=== PATIENT | female | born 1955 | race Caucasian/White ===

== ENCOUNTER 2017-07-02 10:59 | Outpatient (CLI) | payer BC, OTHER | END 2017-07-02 11:00 | disposition home or self-care (01) | LOC: BICMAMMO 10:59 | PROVIDERS: ATTEND Family Medicine | DX: Z12.31 Encounter for screening mammogram for malignant neoplasm of breast (principal); M85.80 Other specified disorders of bone density and structure, unspecified site; M85.859 Other specified disorders of bone density and structure, unspecified thigh | CPT/HCPCS: 77063; 77067; 77080 ==

== ENCOUNTER 2017-12-08 17:22 | Observation (INO) | payer BC ==
--- NOTE | 2017-12-08 17:47 | RAD ---
FRONTAL RADIOGRAPHY CHEST 12/08/17 COMPARISON: None available. HISTORY: Hypertension, left arm numbness, and back pain. FINDINGS: The lungs appear clear. No focal consolidation or alveolar edema. Heart and mediastinal contours are within normal limits. IMPRESSION: No acute findings. POS: [facility]
[2017-12-08 18:13] LABS: #Basophils 0.1 thou/uL (0.0-0.2); #Eosinphils 0.1 thou/uL (0.0-0.7); #Lymphocytes 2.4 thou/uL (1.20-3.40); #Monocytes 0.7 thou/uL (0.11-0.59); #Neutrophils 7.5 thou/uL (1.40-6.50); %Basophils 0.8 % (0.0-1.0); %Eosinophils 1.3 % (0.0-10.0); %Lymphocytes 22.1 % (21.0-51.0); %Monocytes 6.7 % (0.0-10.0); %Neutrophils 69.2 % (42.0-75.0); Hemoglobin 15.9 g/dL (12.0-16.0); Mean Corpuscular HGB CONC 35.6 g/dL (32.0-36.0); Mean Corpuscular Hemoglobin 32.8 pg (27.0-31.0); Mean Corpuscular Volume 92.2 fL (78.0-98.0); Mean Platelet Volume 8.7 fL (7.4-10.4); Platelet Count 186 thou/uL (130-400); RBC Distribution Width 13.4 % (11.5-14.5); Red Blood Cell (RBC) Count 4.84 mill/uL (4.20-5.40); White Blood Cell (WBC) Count 10.8 thou/uL (4.8-10.8)
[2017-12-08 18:23] LABS: ALT (SGPT) 60 U/L (8-55); AST (SGOT) 38 U/L (5-34); Albumin 4.9 g/dL (3.4-4.8); Alkaline Phosphatase 92 U/L (40-150); Anion Gap 18 mmol/L (10-20); BUN (Urea Nitrogen) 16 mg/dL (9.8-20.1); CK (CPK) 109 U/L (29-168); Calc. Creatinine Clearance 0 mL/min (70-130); Calcium 10.1 mg/dL (7.8-10.44); Carbon Dioxide 22 mmol/L (23-31); Chloride 101 mmol/L (98-107); Estimated GFR-MDRD 69; Globulin 2.6 g/dL (2.4-3.5); Glucose 100 mg/dL (80-115); Lipase 27 U/L (8-78); Potassium 3.6 mmol/L (3.5-5.1); Protein, Total 7.5 g/dL (6.0-8.3); Sodium 137 mmol/L (136-145)
[2017-12-08 18:30] LABS: CKMB 1.1 ng/mL (0-6.6); Troponin I Less than 0.010 ng/mL (< 0.028)
[2017-12-08] MEDS ORDERED: Nitroglycerin 2% Ointment 1 INCH/1 GM Packet ONE (18:31)
[2017-12-08] MEDS ORDERED: hydrALAZINE 20 MG/ML VIAL SLOW IVP PRN (20:22)
[2017-12-08] MEDS ORDERED: Ondansetron ODT 4 MG TAB PO PRN (20:24)
[2017-12-08 21:21] LABS: Troponin I Less than 0.010 ng/mL (< 0.028)
--- NOTE | 2017-12-08 21:53 | CT ---
CT ANGIOGRAM OF CHEST AND ABDOMEN 12/08/17 COMPARISON: None. HISTORY: Hypertension, chest pain, assess for aneurysm or dissection of the aorta. TECHNIQUE: Serial axial CT imaging at 2.5 mm intervals from thoracic inlet through mid sacrum with IV contrast u sing a CT angiogram protocol. Coronal and sagittal 3D reformatted imaging obtained. FINDINGS: No axillary, mediastinal, or hilar lymphadenopathy. No pleural, pericardial, or mediastinal fluid. No pneumothorax. Lung parenchyma appears grossly unremarkable bilaterally. No endobronchial lesion is evident. There is no evidence for aneurysm or dissection of the thoracic or the abdominal aorta. The hepatic parenchyma is diffusely hypodense, suggesting hepatic steatosis. The spleen is grossly un remarkable. The gallbladder is surgically absent. The pancreas is unremarkable as are bilateral adren al glands. The kidneys appear grossly unremarkable as well. There is mild scattered atherosclerotic calcification of the abdominal aorta and its branches. The ce liac axis, superior mesenteric artery, bilateral renal arteries, and inferior mesenteric artery are p atent. Imaged portions of the bowel appear grossly unremarkable. The pelvis is not imaged on this exam. No a bdominal adenopathy. Osseous structures demonstrate multilevel lower lumbar spine facet hypertrophic change. No worrisome lytic or blastic bone lesion. IMPRESSION: No evidence for aneurysm or dissection of the thoracic or abdominal aorta. POS: [facility]
[2017-12-08 22:08] VITALS: BMI 37.5
[2017-12-08] MEDS: Famotidine 20 MG TAB PO SCH (22:45)
[2017-12-09 00:05] LABS: Troponin I Less than 0.010 ng/mL (< 0.028)
[2017-12-09] MEDS ORDERED: Norepinephrine 8 MG/0.9% NS 250 ML IVPB PRN (00:37)
[2017-12-09] MEDS ORDERED: CCU Electrolyte Replacement 1 EACH IVPB SCH (00:37)
[2017-12-09] MEDS ORDERED: Ventilator Sedation Protocol 1 EACH FS SCH (00:45)
[2017-12-09] MEDS ORDERED: Propofol 1,000 MG/100 ML VIAL IV PRN (00:51)
[2017-12-09] MEDS ORDERED: Fentanyl BOLUS 250 ML IVPB PRN (00:51)
[2017-12-09] MEDS ORDERED: DISCONTINUE PREVIOUS NARCOTIC PAIN MEDICATIONS AND BENZODIAZEPINES FS SCH (00:51)
[2017-12-09] MEDS ORDERED: Propofol BOLUS 1,000 MG/100 ML VIAL IV PRN (00:51)
[2017-12-09] MEDS ORDERED: Lorazepam 2 MG/ML VIAL SLOW IVP PRN (00:51)
[2017-12-09] MEDS ORDERED: fentaNYL Citrate/PF 2,000 MCG in Sodium Chloride 0.9% 60 ML IV SCH (00:51)
[2017-12-09] MEDS ORDERED: Potassium Chloride 40 MEQ in Sodium Chloride 0.9% 250 ML 250 ML IVPB PRN (00:52)
[2017-12-09] MEDS ORDERED: Potassium Phosphate 15 MMOL in Sodium Chloride 0.9% 250 ML 250 ML IV PRN (00:52)
[2017-12-09] MEDS ORDERED: Potassium Chloride 20 MEQ TAB PO PRN (00:52)
[2017-12-09] MEDS ORDERED: Potassium Phosphate 9 MMOL in Sodium Chloride 0.9% 100 ML IVPB PRN (00:52)
[2017-12-09] MEDS ORDERED: Magnesium 2 GM/NS 0.9% 100 ML 2 GM in Premix Bag 1 BAG IVPB PRN (00:52)
[2017-12-09] MEDS ORDERED: Magnesium Oxide 400 MG TAB PO PRN ×2 (00:52)
[2017-12-09] MEDS ORDERED: Potassium Phosphate 12 MMOL in Sodium Chloride 0.9% 250 ML 250 ML IV PRN (00:52)
[2017-12-09] MEDS ORDERED: CCU ELECTROLYTE REPLACEMENT PROTOCOL FS PRN (00:52)
[2017-12-09] MEDS ORDERED: Potassium Chloride 40 MEQ in Premix Bag 1 BAG IVPB PRN (00:52)
[2017-12-09] MEDS ORDERED: Morphine 2 MG/ML SYRINGE SLOW IVP PRN (01:00)
[2017-12-09] MEDS ORDERED: Sodium Chloride 0.9% 1,000 ML IV SCH (01:45)
--- NOTE | 2017-12-09 02:42 | HP ---
CHIEF COMPLAINT: Hypertension. HISTORY OF PRESENT ILLNESS: This is a 62-year-old female with past medical history of hyperlipidemia , hypertension, presenting to the ED with chief complaint of elevated blood pressure. Per the patien everardo, she has been helping the grandchild, who has special needs and after lifting the grandchild faye mcgee pulled her back muscle and since the patient has been having back pain which has been radiating to the left arm and left arm has been having some numbness and tingling sensation in it. Patient has be en taking tramadol to help with the pain; however, today patient stated that she was not feeling too well and that she was feeling "funny." Therefore, patient checked her blood pressure and her systoli c blood pressure was 211, so this prompted the ED visit. At this point during my time with the amanda vigil, patient was found to have prodromal symptoms of nausea, diaphoresis, and patient had a near synco pe and patient's blood pressure dropped from 180 systolic to 108 systolic in the ED. EKG was done by the bedside, which showed the patient was bradycardic in the 40s. Patient was then started on fluid s and patient was sent to CAT scan. CT of the chest was done to rule out any aortic dissection. Pat ient denies any headaches, chest pain, palpitations, abdominal pain. REVIEW OF SYSTEMS: Positive for hypertension, generalized weakness, back pain, otherwise as document ed in the HPI. All other systems were reviewed and are negative. FAMILY HISTORY: Patient's mother and father had heart issues. Mom had a catheterization and father at 40 with cardiac issue. PAST MEDICAL HISTORY: 1. Hyperlipidemia. 2. Hypertension. PAST SURGICAL HISTORY: Laparoscopic cholecystectomy and hysterectomy. PSYCHIATRIC HISTORY: No previous psychiatric history noted. SOCIAL HISTORY: Patient is a social drinker. Denies any illicit drug use. Denies any smoking histo ry. ALLERGIES: No known drug allergies. CURRENT MEDICATIONS: 1. Patient takes tramadol and acetaminophen. 2. Benicar hydrochlorothiazide 40 mg/25 mg. 3. Crestor 10 mg. 4. Bystolic 10 mg. PHYSICAL EXAMINATION: VITAL SIGNS: Blood pressure is 234/111, pulse of 59, respiratory rate of 16, temperature of 98, O2 s at of 96. After patient had near syncope, patient's blood pressure repeat was 108/58, pulse of 45, r espiratory rate of 18, O2 sat of 96. GENERAL APPEARANCE: During my examination, patient was lying in bed, states that she was feeling fun ny, but does not appear to be in any acute distress, speaking in full sentences. HEENT: Normocephal ic, atraumatic. Pupils are equal, round, and reactive to light. Extraocular movements are intact. No scleral icterus. No conjunctival pallor. NECK: Supple, no JVD. Trachea is midline. Full range of motion. RESPIRATORY: Clear to auscultation bilaterally. No wheezing, no rales, no rhonchi appreciated. CARDIOVASCULAR: Positive S1, S2. Regular rate and rhythm. Patient is bradycardic. ABDOMEN: Obese abdomen, soft, nontender, nondistended. No peritoneal signs. Positive bowel sounds in all quadrants. EXTREMITIES: Upper and lower extremity, patient has 5/5 upper extremity strength. Good radial pulse s and 5/5 lower extremity strength. Good radial pulses. NEUROLOGIC: Cranial nerves II-XII grossly intact. No neurologic deficit noted. SKIN: Warm, dry, and intact. IMAGIN. EKG showed sinus bradycardia with a rate of 57. 2. Repeat EKG showed sinus bradycardia with a rate of 45 with first-degree heart block. 3. Chest x-ray showed no acute findings. 4. CT of the chest showed no evidence of aneurysm or dissection of the thoracic or abdominal aorta. ED COURSE: In the ED, patient was given normal saline, aspirin, and nitro transdermal. LABORATORY DATA: WBC 10.8, hemoglobin 15.9, hematocrit 44.6, MCV 92.2, RDW 13.4, platelet count 186. Sodium of 137, potassium 3.6, chloride 101, carbon dioxide of 22, anion gap of 18, BUN 16, creatini ne is 0.84, glucose of 100. AST is 38, ALT is 60, lipase of 27. Troponin is less than 0.010 x2. ASSESSMENT AND PLAN: This is a 62-year-old female with past medical history of hypertension presenti with hypertensive urgency. Patient's blood pressure at home was 211, repeat in the ED was 235 sys tolic. Patient was given nitro patch in the ED and hydralazine 10 mg IV every 4 hours p.r.n. has bee n ordered. We will continue to watch patient's blood pressure closely. Patient is going to be admit douglas to tele floor. We will consider Cardiology consult after echo has been performed. Depending on echo results, we will consider Cardiology consult. 1. History of hypertension. Patient takes hypertensive medication, however, seems like patient's me dication is not controlling patient's blood pressure, therefore, based on how patient does overnight. The morning team will adjust patient's blood pressure medications accordingly to address patient's blood pressures. 2. Hyperlipidemia. Continue patient on her current medications. 3. Deep venous thrombosis and gastrointestinal prophylaxis. We will do Lovenox and Pepcid for gastr ointestinal prophylaxis.
[2017-12-09] MEDS: Acetaminophen 325 MG TAB PO PRN ×2 (03:22→17:49)
[2017-12-09 04:37] LABS: Anion Gap 13 mmol/L (10-20); BUN (Urea Nitrogen) 13 mg/dL (9.8-20.1); Calc. Creatinine Clearance 129 mL/min (70-130); Calcium 9.7 mg/dL (7.8-10.44); Carbon Dioxide 25 mmol/L (23-31); Chloride 102 mmol/L (98-107); Estimated GFR-MDRD 83; Glucose 98 mg/dL (80-115); Sodium 137 mmol/L (136-145)
[2017-12-09 04:45] LABS: #Eosinphils 0.1 thou/uL (0.0-0.7); #Monocytes 0.6 thou/uL (0.11-0.59); #Neutrophils 6.6 thou/uL (1.40-6.50); %Basophils 0.5 % (0.0-1.0); %Eosinophils 0.7 % (0.0-10.0); %Lymphocytes 21.4 % (21.0-51.0); %Monocytes 6.6 % (0.0-10.0); %Neutrophils 70.9 % (42.0-75.0); Hemoglobin 15.2 g/dL (12.0-16.0); Mean Corpuscular HGB CONC 35.6 g/dL (32.0-36.0); Mean Corpuscular Hemoglobin 33.1 pg (27.0-31.0); Mean Corpuscular Volume 92.9 fL (78.0-98.0); Mean Platelet Volume 8.4 fL (7.4-10.4); Platelet Count 159 thou/uL (130-400); RBC Distribution Width 13.4 % (11.5-14.5); Red Blood Cell (RBC) Count 4.58 mill/uL (4.20-5.40); White Blood Cell (WBC) Count 9.3 thou/uL (4.8-10.8)
[2017-12-09] MEDS: Nebivolol HCl 5 MG TAB PO SCH (05:10)
[2017-12-09] MEDS: Hydrochlorothiazide 25 MG TAB PO SCH (05:10)
[2017-12-09] MEDS ORDERED: Famotidine/PF 20 mg/2ml Vial SLOW IVP SCH (09:00)
[2017-12-09] MEDS: Famotidine 20 MG TAB PO SCH ×2 (10:14→20:17)
[2017-12-09] MEDS: Enoxaparin Sodium 40 MG/0.4 ML SYRINGE SC SCH (10:15)
[2017-12-09] MEDS ORDERED: Promethazine HCl 25 MG/ML VIAL IM/IV SCH (13:30)
[2017-12-09] MEDS ORDERED: Cyclobenzaprine 10 MG TAB PO SCH (13:30)
--- NOTE | 2017-12-09 15:59 | CT ---
CT THORACIC SPINE NONCONTRAST: HISTORY: Lifting injury. Back pain. FINDINGS: Vertebral body height and alignment are maintained. Mild osteophytosis. No acute fracture or disloc ation. IMPRESSION: No evidence of compression fracture. No acute osseous abnormalities are demonstrated. POS: [facility]
--- NOTE | 2017-12-09 17:23 | PDOC.PN ---
- Subjective Encounter Start Date: 12/09/17 Encounter Start Time: 15:00 Pt seen for followup re:hypertensive urgency. c/o left upper back pain, started when she was trying to gransfer grandchild from wheelchair to car a few days ago. - Objective Resuscitation Status: Resuscitation Status FULL:Full Resuscitation MAR Reviewed: Yes Vital Signs & Weight: Vital Signs (12 hours) Temp Pulse Resp BP BP Pulse Ox 12/09/17 16:50 70 182/88 H 12/09/17 16:04 98.0 F 74 20 188/83 H 93 L 12/09/17 11:52 97.9 F 60 20 190/86 H 96 12/09/17 07:32 98.0 F 65 20 182/84 H 94 L 12/09/17 06:00 67 154/72 H Weight Weight 219 lb I&O: 12/08/17 12/09/17 12/10/17 06:59 06:59 06:59 Intake Total 240 Output Total 1900 Balance -1660 Result Diagrams: 12/09/17 03:52 12/09/17 03:52 EKG Reviewed by me: Yes (Tele: NSR) Phys Exam - Physical Examination Obese HEENT: moist MMs, sclera anicteric, oral pharynx no lesions, 2+ tonsils Neck: no nodes, no JVD, supple, full ROM Respiratory: no wheezing, no rales, no rhonchi, clear to auscultation bilateral Cardiovascular: RRR, no rub S1, S2 Gastrointestinal: soft, non-tender, no distention, positive bowel sounds tenderness upper left back Neurological: moves all 4 limbs Psychiatric: normal affect, A&O x 3 Dx/Plan (1) Hypertensive urgency Code(s): I16.0 - HYPERTENSIVE URGENCY Status: Acute Comment: add scheduled hydralazine (2) Back pain Code(s): M54.9 - DORSALGIA, UNSPECIFIED Status: Acute Comment: Flexeril PRN (3) Abnormal LFTs Code(s): R94.5 - ABNORMAL RESULTS OF LIVER FUNCTION STUDIES Status: Acute Comment: mild transaminitis, recheck (4) Dyslipidemia Code(s): E78.5 - HYPERLIPIDEMIA, UNSPECIFIED Status: Chronic Comment: continue statin - Plan * . Review of Systems - Review of Systems Constitutional: weakness. negative: fever, chills, sweats, malaise Cardiovascular: negative: chest pain, palpitations, orthopnea, paroxysmal nocturnal dyspnea, edema, light headedness Gastrointestinal: Nausea. negative: Vomiting, Abdominal Pain, Diarrhea, Constipation, Melena, Hematochezia Genitourinary: negative: Dysuria, Frequency, Incontinence, Hematuria, Retention Musculoskeletal: Back Pain. negative: Neck Pain, Shoulder Pain, Arm Pain, Hand Pain, Leg Pain, Foot Pain Skin: negative: Rash, Lesions, Fredi, Bruising - Medications/Allergies Allergies/Adverse Reactions: Allergies Allergy/AdvReac Type Severity Reaction Status Date / Time No Known Drug Allergies Allergy Verified 12/08/17 22:20 Medications: Current Medications Acetaminophen (Tylenol) 650 mg PO Q4H PRN PRN Reason: Headache/Fever/Mild Pain (1-3) Last Admin: 12/09/17 03:22 Dose: 650 mg Acetaminophen (Tylenol) 325 mg PO HS ON LICENSE OF [facility] Cyclobenzaprine HCl (Flexeril) 10 mg PO TID PRN PRN Reason: Muscle Spasm Enoxaparin Sodium (Lovenox) 40 mg SC 0900 ON LICENSE OF [facility] Last Admin: 12/09/17 10:15 Dose: 40 mg Famotidine (Pepcid) 20 mg PO BID ON LICENSE OF [facility] Last Admin: 12/09/17 10:14 Dose: 20 mg Hydralazine HCl (Apresoline) 10 mg SLOW IVP Q4H PRN PRN Reason: Hypertension Last Admin: 12/09/17 03:23 Dose: 10 mg Hydralazine HCl (Apresoline) 25 mg PO QID ON LICENSE OF [facility] Hydralazine HCl (Apresoline) 25 mg PO ONE ON LICENSE OF [facility] Hydrochlorothiazide (Hydrochlorothiazide) 25 mg PO DAILY ON LICENSE OF [facility] Last Admin: 12/09/17 05:10 Dose: 25 mg Nebivolol (Bystolic) 20 mg PO DAILY ON LICENSE OF [facility] Last Admin: 12/09/17 05:10 Dose: 20 mg Olmesartan (Benicar) 40 mg PO DAILY ON LICENSE OF [facility] Last Admin: 12/09/17 05:10 Dose: 40 mg Ondansetron HCl (Zofran Odt) 4 mg PO Q6H PRN PRN Reason: Nausea/Vomiting Last Admin: 12/09/17 05:12 Dose: 4 mg Rosuvastatin Calcium (Crestor) 10 mg PO HS ON LICENSE OF [facility] Sodium Chloride (Flush - Normal Saline) 10 ml IVF Q12HR PRN PRN Reason: Saline Flush Tramadol HCl (Ultram) 50 mg PO HS [facility]HEL[facility]
[2017-12-09] MEDS ORDERED: hydrALAZINE 25 MG TAB PO SCH (17:30)
[2017-12-09] MEDS ORDERED: Cyclobenzaprine 10 MG TAB PO PRN (21:00)
[2017-12-09] MEDS ORDERED: Acetaminophen 325 MG TAB PO SCH (21:00)
[2017-12-09] MEDS ORDERED: ACETAMINOPHEN PO SCH (21:00)
[2017-12-09] MEDS ORDERED: Rosuvastatin 10 MG TAB PO SCH (21:00)
[2017-12-09] MEDS ORDERED: traMADol HCl 50 MG TAB PO SCH (21:00)
[2017-12-09] MEDS ORDERED: TABL PO SCH (21:00)
[2017-12-09] MEDS ORDERED: TRAMADOL HCL PO SCH (21:00)
[2017-12-09] MEDS ORDERED: [UNRECOGNIZED DRUG - OTHER] PO SCH (21:00)
[2017-12-09] MEDS: hydrALAZINE 25 MG TAB PO SCH (22:58)
[2017-12-10 04:22] LABS: #Basophils 0.1 thou/uL (0.0-0.2); #Eosinphils 0.1 thou/uL (0.0-0.7); #Lymphocytes 2.2 thou/uL (1.20-3.40); #Monocytes 0.9 thou/uL (0.11-0.59); #Neutrophils 6.3 thou/uL (1.40-6.50); %Basophils 0.7 % (0.0-1.0); %Eosinophils 0.8 % (0.0-10.0); %Lymphocytes 22.9 % (21.0-51.0); %Monocytes 9.7 % (0.0-10.0); Hemoglobin 15.1 g/dL (12.0-16.0); Mean Corpuscular HGB CONC 34.9 g/dL (32.0-36.0); Mean Corpuscular Hemoglobin 32.8 pg (27.0-31.0); Mean Platelet Volume 8.4 fL (7.4-10.4); Platelet Count 175 thou/uL (130-400); RBC Distribution Width 13.3 % (11.5-14.5); Red Blood Cell (RBC) Count 4.61 mill/uL (4.20-5.40); White Blood Cell (WBC) Count 9.6 thou/uL (4.8-10.8)
[2017-12-10 04:38] LABS: ALT (SGPT) 43 U/L (8-55); AST (SGOT) 21 U/L (5-34); Albumin 4.3 g/dL (3.4-4.8); Alkaline Phosphatase 72 U/L (40-150); Anion Gap 13 mmol/L (10-20); BUN (Urea Nitrogen) 16 mg/dL (9.8-20.1); Bilirubin, Total 1.2 mg/dL (0.2-1.2); Calc. Creatinine Clearance 111 mL/min (70-130); Calcium 9.7 mg/dL (7.8-10.44); Carbon Dioxide 30 mmol/L (23-31); Chloride 96 mmol/L (98-107); Estimated GFR-MDRD 73; Globulin 2.6 g/dL (2.4-3.5); Glucose 109 mg/dL (80-115); Protein, Total 6.9 g/dL (6.0-8.3); Sodium 136 mmol/L (136-145)
[2017-12-10 04:49] LABS: Potassium 2.9 mmol/L (3.5-5.1)
[2017-12-10] MEDS ORDERED: Potassium Chloride 20 MEQ TAB PO SCH (05:15)
[2017-12-10] MEDS: Hydrochlorothiazide 25 MG TAB PO SCH (09:20)
[2017-12-10] MEDS: Acetaminophen 325 MG TAB PO PRN (09:20)
[2017-12-10] MEDS: Nebivolol HCl 5 MG TAB PO SCH (09:20)
[2017-12-10] MEDS: Famotidine 20 MG TAB PO SCH (09:21)
[2017-12-10] MEDS: hydrALAZINE 25 MG TAB PO SCH ×2 (09:21→12:11)
[2017-12-10] MEDS: Enoxaparin Sodium 40 MG/0.4 ML SYRINGE SC SCH (09:21)
--- NOTE | 2017-12-10 10:14 | PDOC.PN ---
- Subjective Encounter Start Date: 12/10/17 Encounter Start Time: 10:12 Subjective: no sob, dizziness - Objective Resuscitation Status: Resuscitation Status FULL:Full Resuscitation MAR Reviewed: Yes Vital Signs & Weight: Vital Signs (12 hours) Temp Pulse Resp BP Pulse Ox 12/10/17 09:21 61 12/10/17 07:33 98.0 F 61 20 168/77 H 96 12/10/17 04:20 94 L 12/10/17 03:00 98.0 F 54 L 16 178/83 H 94 L 12/09/17 22:58 98.8 F 63 16 164/77 H 93 L Weight Weight 212 lb I&O: 12/09/17 12/10/17 12/11/17 06:59 06:59 06:59 Intake Total 240 830 Output Total 1900 950 Balance -1660 -120 Result Diagrams: 12/10/17 04:01 12/10/17 04:01 Phys Exam - Physical Examination Neck: no JVD Respiratory: clear to auscultation bilateral Cardiovascular: RRR, no significant murmur Gastrointestinal: soft, non-tender, positive bowel sounds Musculoskeletal: no edema Dx/Plan (1) Hypokalemia Code(s): E87.6 - HYPOKALEMIA Status: Acute (2) Back pain Code(s): M54.9 - DORSALGIA, UNSPECIFIED Status: Acute Qualifiers: Back pain location: back pain in unspecified location Chronicity: acute Back pain laterality: unspecified Qualified Code(s): M54.9 - Dorsalgia, unspecified Comment: Flexeril PRN (3) Hypertensive urgency Code(s): I16.0 - HYPERTENSIVE URGENCY Status: Acute Comment: add scheduled hydralazine (4) Dyslipidemia Code(s): E78.5 - HYPERLIPIDEMIA, UNSPECIFIED Status: Chronic Comment: continue statin - Plan cont home meds plus hydralazine -: replace K+ -: FU for potential DC * .
[2017-12-10 11:53] VITALS: BP 142/68; TEMP 98.1
--- NOTE | 2017-12-10 15:52 | DIS ---
DATE OF ADMISSION: 12/08/2017 DATE OF DISCHARGE: 12/10/2017 PRIMARY CARE PROVIDER: Chandana Lawrence M.D. DISPOSITION: Discharged home. DISCHARGE DIAGNOSES: Hypertensive urgency, dyslipidemia, back pain. DISCHARGE MEDICATIONS: Bystolic 20 mg a day, Crestor 10 mg a day, tramadol/acetaminophen one at bedt garth, Apresoline 25 mg 4 times a day, olmesartan/hydrochlorothiazide 40/25 one a day. ALLERGIES: No known drug allergies. CODE STATUS: FULL. PENDING AT THE TIME OF DISCHARGE: Nothing. CONSULTATIONS: None. PROCEDURES: None. HOSPITAL COURSE: The patient was placed in the hospital with elevated blood pressure, back pain. T- spine showed no abnormality. An echocardiogram was done, which had an EF of 55%-60% with grade I luis stolic dysfunction, otherwise unremarkable. Laboratory: CBC was unremarkable x3. Basic metabolic p rofile: Sodium 137, potassium 3.6, chloride 101, CO2 of 22, BUN 16, creatinine 0.84. She has some m ild increases in her transaminases, 38 and 60, which on followup were normal 43 and 72. Cardiac enzy mes were normal. The patient, after being seen today, stated she was feeling better. She had initia lly complained of some nonspecific back pain. It is felt that the pain was related to her picking up her child. She checked her blood pressure at home and had a systolic of 211. In the hospital, her home medicines were continued. Apresoline was added. Subsequent vital signs 178/83, 168/77, 142/68. She is not dizzy on arising. The situation is discussed with her and her . She is content with going home. They have been told to follow up with Dr. Lawrence in 1 week.
== END 2017-12-10 16:14 | disposition home or self-care (01) ==
LOC: ERS 17:22 → 2SW 21:59
PROVIDERS: ADMIT Internal Medicine; ATTEND Internal Medicine
DX: I16.0 Hypertensive urgency (principal); I10 Essential (primary) hypertension; E78.5 Hyperlipidemia, unspecified; M54.5 Low back pain; R20.2 Paresthesia of skin; R94.5 Abnormal results of liver function studies; E87.6 Hypokalemia; Z79.891 Long term (current) use of opiate analgesic; Z79.899 Other long term (current) drug therapy
CPT/HCPCS: 36415; 71045; 71275; 72128; 80048; 80053; 82550; 82553; 83690; 84484; 85025; 93005; 93306; 96360; 96372; 96374; 96375; G0378; J1650; J2550; Q0162

== ENCOUNTER 2018-01-08 12:49 | Outpatient (CLI) | payer BC ==
--- NOTE | 2018-01-08 15:17 | MRI ---
CERVICAL SPINE MRI WITHOUT IV CONTRAST: History: 62-year-old female with history of cervical radiculopathy, M54.12. Lifting injury in November 2017 w ith cervical spine and left arm and hand pain and numbness. FINDINGS: Multiplanar multisequence MRI examination of the cervical spine is performed. There is a prominent posterior disc osteophyte at C2-3 in the right paracentral region with prominent right sided ventral thecal sac indention and right lateral recess stenosis with very mild right fora laura stenosis. C2-3: There is very mild right foraminal stenosis. C4-5: There is generalized disc osteophytosis with moderate canal and lateral recess stenosis and josse ateral foraminal stenosis. C5-6: There is diffuse disc osteophytosis, more prominent in the right paracentral aspect with modera te central canal and bilateral lateral recess stenosis, worse on the right side, with foraminal steno sis worse on the right side. C6-7: Generalized disc osteophytic change with moderate central canal stenosis and bilateral recess s tenosis and severe right foraminal stenosis and moderate left foraminal stenosis. C7-T1: Mild bilateral recess stenosis and mild bilateral foraminal stenosis and mild central canal an d lateral recess stenosis. IMPRESSION: Multilevel variable severity canal, lateral recess, and foraminal stenosis. Small amount of mucosal t hickening involving the sphenoid sinus. No spinal cord mass. Mild indention of the spinal cord at C4- 5 and somewhat more prominently at C5-6. POS: [facility]
== END 2018-01-08 12:50 | disposition home or self-care (01) ==
LOC: BICMRI 12:49
PROVIDERS: ATTEND Neurological Surgery
DX: M54.12 Radiculopathy, cervical region (principal); M48.02 Spinal stenosis, cervical region; M99.81 Other biomechanical lesions of cervical region; J34.89 Other specified disorders of nose and nasal sinuses
CPT/HCPCS: 72141

== ENCOUNTER 2019-03-13 10:30 | Outpatient (CLI) | payer BC ==
--- NOTE | 2019-03-13 11:34 | MMO ---
Bilateral MAMMO Bilat Screen DDI+DC. CLINICAL HISTORY: Patient is 64 years old and is seen for screening. The patient has no family history of breast cancer. The patient has no personal history of cancer. VIEWS: The views performed were: bilateral craniocaudal with tomosynthesis and bilateral mediolateral oblique with tomosynthesis. FILMS COMPARED: The present examination has been compared to prior imaging studies performed at [facility] on 10/11/2010, 02/09/2012, 02/15/2016 and 07/02/2017. This study has been interpreted with the assistance of computer-aided detection. MAMMOGRAM FINDINGS: There are scattered fibroglandular densities. There are stable benign appearing calcifications seen in both breasts. There are no suspicious masses, suspicious calcifications, or new areas of architectural distortion. IMPRESSION: THERE IS NO MAMMOGRAPHIC EVIDENCE OF MALIGNANCY. A ROUTINE FOLLOW-UP MAMMOGRAM IN 1 YEAR IS RECOMMENDED. THE RESULTS OF THIS EXAM WERE SENT TO THE PATIENT. ACR BI-RADS Category 2 - Benign finding MAMMOGRAPHY NOTE: 1. A negative mammogram report should not delay a biopsy if a dominant of clinically suspicious mass is present. 2. Approximately 10% to 15% of breast cancers are not detected by mammography. 3. Adenosis and dense breasts may obscure an underlying neoplasm. Reported by: KEVIN MILES MD Electonically Signed: [id number]
== END 2019-03-13 10:31 | disposition home or self-care (01) ==
LOC: BICMAMMO 10:30
PROVIDERS: ATTEND Family Medicine
DX: Z12.31 Encounter for screening mammogram for malignant neoplasm of breast (principal)
CPT/HCPCS: 77063; 77067

== ENCOUNTER 2021-12-14 10:06 | Outpatient (CLI) | payer MEDICARE | END 2021-12-14 10:07 | disposition home or self-care (01) | LOC: BICMAMMO 10:06 | PROVIDERS: ATTEND Registered Nurse | DX: Z12.31 Encounter for screening mammogram for malignant neoplasm of breast (principal); M81.0 Age-related osteoporosis without current pathological fracture; M85.851 Other specified disorders of bone density and structure, right thigh; M85.852 Other specified disorders of bone density and structure, left thigh; Z78.0 Asymptomatic menopausal state | CPT/HCPCS: 77063; 77067; 77080 ==

== ENCOUNTER 2023-01-05 09:45 | Outpatient (CLI) | payer MEDICARE | END 2023-01-05 09:46 | disposition home or self-care (01) | LOC: BICMAMMO 09:45 | PROVIDERS: ATTEND Registered Nurse | DX: Z12.31 Encounter for screening mammogram for malignant neoplasm of breast (principal) | CPT/HCPCS: 77063; 77067 ==

== ENCOUNTER 2024-01-07 09:01 | Outpatient (CLI) | payer MEDICARE | END 2024-01-07 09:02 | disposition home or self-care (01) | LOC: BICMAMMO 09:01 | PROVIDERS: ATTEND Registered Nurse | DX: Z12.31 Encounter for screening mammogram for malignant neoplasm of breast (principal); M85.851 Other specified disorders of bone density and structure, right thigh; M85.852 Other specified disorders of bone density and structure, left thigh; Z78.0 Asymptomatic menopausal state | CPT/HCPCS: 77063; 77067; 77080 ==